=== PATIENT | female | born 1960 | race Caucasian/White ===

== ENCOUNTER 2021-03-29 02:18 | Emergency (ER) | payer BC ==
[~2021-03-29] VITALS: Ht 167.6 cm; Wt 114.0 kg
[2021-03-29] MEDS ORDERED: DIPHENHYDRAMINE 50MG/ML VIAL IV ONE (02:30)
[2021-03-29] MEDS ORDERED: PREDNISONE 20MG TABLET PO ONE (02:30)
[2021-03-29] MEDS ORDERED: FAMOTIDINE 20MG/2ML VIAL IV ONE (02:30)
[2021-03-29] MEDS ORDERED: EPIN0.3P3 IM (04:39)
[2021-03-29] MEDS ORDERED: PRED10TA23 MT (04:39)
[2021-03-29 05:12] VITALS: BP 115/55
== END 2021-03-29 05:15 | disposition home or self-care (01) ==
LOC: ER 02:18
DX: H57.89 Other specified disorders of eye and adnexa (principal); I10 Essential (primary) hypertension
CPT/HCPCS: 93005; 96374; 96375; 99291; J1200; J3490; J7512; 99284